=== PATIENT | female | born 1940 | race Two or more races ===

== ENCOUNTER 2018-06-21 11:47 | Outpatient (CLI) | payer OTHER ==
[~2018-06-21 11:47] MED LIST: AVAPRO300 MG PO; CATAFLAM50 MG PO; GABAPENTIN100 MG PO; ORPH100T PO; SYNTHROID75 MCG PO; TENORMIN50 M1 PO; ULTRACET PO; XARELTO10 MG PO
== END 2018-06-21 11:53 | disposition home or self-care (01) ==
LOC: SONOGRAMA 11:47
DX: E04.2 Nontoxic multinodular goiter (principal)

== ENCOUNTER 2018-09-11 10:41 | Outpatient (CLI) | payer OTHER | END 2018-09-11 10:51 | disposition home or self-care (01) | LOC: RAD 501 10:41 | DX: M25.561 Pain in right knee (principal); M25.562 Pain in left knee; M25.571 Pain in right ankle and joints of right foot; M25.572 Pain in left ankle and joints of left foot ==

== ENCOUNTER 2021-07-17 09:49 | Outpatient (CLI) | payer OTHER | END 2021-07-17 09:59 | disposition home or self-care (01) | LOC: MAMO-SONO 09:49 | PROVIDERS: ATTEND Internal Medicine Endocrinology, Diabetes & Metabolism | DX: E04.2 Nontoxic multinodular goiter (principal) ==

== ENCOUNTER 2021-09-16 08:45 | Outpatient (CLI) | payer OTHER | END 2021-09-16 08:52 | disposition home or self-care (01) | LOC: RAD 08:45 | PROVIDERS: ATTEND Podiatrist | DX: M79.672 Pain in left foot (principal) ==